=== PATIENT | female | born 1955 ===

== ENCOUNTER → 2024-02-29 | Outpatient (CLI) | payer BC ==
[2024-02-29 10:25] LABS: Basophils # (auto) 0 10 ^3/uL (0-0.2); Basophils % (auto) 0.9 % (0.0-2.0); Eosinophils # (auto) 0.1 10 ^3/uL (0-0.8); Eosinophils % (auto) 1.3 % (0.0-7.0); Hematocrit 40.9 % (36.0-46.0); Hemoglobin 13.8 g/dL (12.2-16.2); Lymphocytes # (auto) 1.4 10 ^3/uL (0.4-5.4); Lymphocytes % (auto) 31.6 % (10.0-50.0); Mean Corpuscular Hemoglobin 29.3 pg (28.0-32.0); Mean Corpuscular Hgb Conc. 33.6 g/dL (32.0-36.0); Mean Corpuscular Volume 87.2 fL (80.0-100.0); Monocytes # (auto) 0.4 10 ^3/uL (0-1.3); Monocytes % (auto) 8.6 % (0.0-12.0); Neutrophils # (auto) 2.5 10 ^3/uL (1.6-8.6); Neutrophils % (auto) 57.6 % (37.0-80.0); Nucleated Red Blood Cells % 0.1 %; Red Cell Distribution Width 14.2 % (11.8-14.3); White Blood Cell 4.4 10^3/uL (4.4-10.8)
[2024-02-29 10:47] LABS: Urine Blood 1+ /uL (Negative); Urine Clarity Clear (Clear); Urine Color Light-Yellow (Yellow); Urine Protein, UAD Negative (Negative); Urine Specific Gravity 1.018 (1.001-1.035); Urine Urobilinogen Normal (Negative); Urine pH 6.5 (5.0-9.0)
[2024-02-29 11:00] LABS: Alanine Aminotransferase 14 U/L (7-40); Albumin 4.3 g/dL (3.2-4.8); Alkaline Phosphatase 121 U/L (46-116); Anion Gap 4 (5-15); Aspartate Aminotransferase 16 U/L (13-40); BUN/Creatinine Ratio 14.9 (10.0-20.0); Blood Urea Nitrogen 11 mg/dL (9-23); Calcium 9.8 mg/dL (8.5-10.1); Carbon Dioxide 29 mmol/L (20-30); Chloride 106 mmol/L (98-107); Cholesterol 158 mg/dL (< 200); Glucose 102 mg/dL (74-106); HDL Cholesterol 58 mg/dL (40-59); LDL Cholesterol 86 mg/dL (< 100); Potassium 4.1 mmol/L (3.5-5.1); Sodium 139 mmol/L (136-145); Triglycerides 82 mg/dL (< 150)
[2024-02-29 11:01] LABS: Bilirubin, Total 0.6 mg/dL (0.2-1.0); Total Protein 7.3 g/dL (5.7-8.2)
[2024-02-29 11:44] LABS: Uric Acid 6.4 mg/dL (3.1-7.8)
== END | disposition home or self-care (01) ==
LOC: LAB 10:13
PROVIDERS: ATTEND Family Medicine
DX: Z12.11 Encounter for screening for malignant neoplasm of colon (principal); Z00.01 Encounter for general adult medical examination with abnormal findings; M15.9 Polyosteoarthritis, unspecified; K21.9 Gastro-esophageal reflux disease without esophagitis
CPT/HCPCS: 36415; 80053; 80061; 81003; 82270; 83036; 84443; 84550; 85025

== ENCOUNTER 2025-03-09 13:33 | Outpatient (CLI) | payer BC | END 2025-03-09 17:00 | disposition home or self-care (01) | LOC: LAB 13:33 | PROVIDERS: ATTEND Family Medicine | DX: Z12.11 Encounter for screening for malignant neoplasm of colon (principal) | CPT/HCPCS: 82270 ==

== ENCOUNTER → 2025-07-20 | Outpatient (CLI) | payer BC ==
[2025-07-20 11:57] LABS: Anion Gap 9.0 (5-15); Carbon Dioxide 29.0 mmol/L (20-31); Chloride 103.0 mmol/L (98-107); Potassium 4.6 mmol/L (3.5-5.1); Sodium 141.0 mmol/L (136-145)
[2025-07-20 11:59] LABS: Calcium 9.7 mg/dL (8.7-10.4)
[2025-07-20 12:03] LABS: Albumin 4.3 g/dL (3.2-4.8); BUN/Creatinine Ratio 16.3 (10.0-20.0); Blood Urea Nitrogen 13.0 mg/dL (9-23); Glucose 100.0 mg/dL (74-106)
== END | disposition home or self-care (01) ==
LOC: LAB 10:31
PROVIDERS: ATTEND Family Medicine
DX: N18.2 Chronic kidney disease, stage 2 (mild) (principal); M51.9 Unspecified thoracic, thoracolumbar and lumbosacral intervertebral disc disorder; Z87.891 Personal history of nicotine dependence
CPT/HCPCS: 36415; 80069; 82043